=== PATIENT | female | born 1975 | race Hispanic/Latino ===

== ENCOUNTER 2019-09-26 09:29 | Emergency (ER) | payer SELFPAY ==
[2019-09-26] MEDS ORDERED: IPRATROPIUM/ALBUTEROL SULFATE 3 ML SOLUTION IH ONE (09:53)
[2019-09-26] MEDS ORDERED: METHYLPREDNISOLONE SOD SUCC 125MG/2ML VIAL ONE (09:59)
== END 2019-09-26 10:24 | disposition home or self-care (01) ==
LOC: EDH 09:29
DX: J45.21 Mild intermittent asthma with (acute) exacerbation (principal); Z87.891 Personal history of nicotine dependence
CPT/HCPCS: 94640; 96372; 99283; J2930

== ENCOUNTER 2020-12-09 20:03 | Inpatient (IN) | payer MEDICAID, OTHER ==
[~2020-12-09] VITALS: Ht 149.9 cm; Wt 100.2 kg
[2020-12-09 20:42] LABS: BASOPHILS % (AUTO) 0.4 % (0.0-5.0); EOSINOPHILS % (AUTO) 2.1 % (0.0-8.0); HEMATOCRIT 24.5 % (36-48); LYMPHOCYTES % (AUTO) 28.1 % (21.0-51.0); MEAN CORPUSCULAR HEMOGLOBIN 15.4 pg (27.0-33.0); MEAN CORPUSCULAR HGB CONC 24.9 g/dL (32.0-36.0); MEAN CORPUSCULAR VOLUME 61.7 fL (79-99); MONOCYTES % (AUTO) 7.8 % (3.0-13.0); NEUTROPHILS % (AUTO) 61.2 % (40.0-77.0); NUCLEATED RED BLOOD CELLS 0.2 % (0.0-0.19); PLATELET COUNT (AUTO) 355 K/uL (130-400); RED BLOOD CELL COUNT(AUTO) 3.97 MIL/uL (4.00-5.50); RED CELL DISTRIBUTION WIDTH 20.1 % (11.0-15.5); WHITE BLOOD COUNT (AUTO) 9.1 K/uL (4.8-10.8)
[2020-12-09 20:43] LABS: APPEARANCE,URINE CLOUDY (CLEAR); BILIRUBIN,URINE NEGATIVE (NEGATIVE); COLOR,URINE YELLOW (YELLOW); GLUCOSE, URINE (UA) NEGATIVE (NEGATIVE); KETONES,URINE NEGATIVE (NEGATIVE); LEUKOCYTE ESTERASE ,URINE NEGATIVE (NEGATIVE); NITRATE,URINE NEGATIVE (NEGATIVE); OCCULT BLOOD,URINE LARGE (NEGATIVE); PROTEIN,URINE TRACE mg/dL (NEGATIVE); UROBILINOGEN,URINE 0.2 mg/dL (0.2-1.0)
[2020-12-09 20:49] LABS: HCG,QUAL RESULT NEGATIVE (NEGATIVE)
[2020-12-09 20:53] LABS: CREATININE 0.9 mg/dL (0.5-1.5); POTASSIUM 3.5 mmol/L (3.5-5.1); RBC,URINE 51-100 /HPF (0-1)
[2020-12-09 20:54] LABS: BACTERIA,URINE Few /HPF (None Seen); WBC,URINE 0-1 /HPF (0-1)
[2020-12-09 20:55] LABS: INR 1.02 (0.85-1.15); MUCUS,URINE Few LPF (None Seen); PROTHROMBIN TIME 11.1 SEC (9.6-11.6); SQUAMOUS EPITHELIAL CELL,UR Few /HPF (0-2)
[2020-12-09 20:56] LABS: HYALINE CASTS, URINE 0-1 /LPF (0-1 /LPF); PARTIAL THROMBOPLASTIN TIME 23.6 SEC (26.3-35.5)
[2020-12-09 21:01] LABS: ALBUMIN 3.8 g/dL (3.5-5.0); BILIRUBIN,TOTAL 0.2 mg/dL (0.2-1.0); TOTAL PROTEIN, SERUM 7.9 g/dL (6.0-8.3)
[2020-12-09] MEDS: DEXTROSE 5 %-0.45 % NACL 1,000 ML IV SCH (22:00)
[2020-12-09] MEDS ORDERED: PHARMACY COMMUNICATION MISC SCH (22:00)
[2020-12-10 00:40] VITALS: BP 132/63
[2020-12-10 04:00] VITALS: BP 109/53
[2020-12-10] MEDS ORDERED: FERR240T6 PO (04:41)
[2020-12-10] MEDS: DEXTROSE 5 %-0.45 % NACL 1,000 ML IV SCH (06:04)
[2020-12-10 07:21] VITALS: BP 127/69
[2020-12-10 07:50] LABS: HEMATOCRIT 28.3 % (36-48); MEAN CORPUSCULAR HEMOGLOBIN 19.4 pg (27.0-33.0); MEAN CORPUSCULAR VOLUME 66.9 fL (79-99); RED BLOOD CELL COUNT(AUTO) 4.23 MIL/uL (4.00-5.50); RED CELL DISTRIBUTION WIDTH 25.3 % (11.0-15.5); WHITE BLOOD COUNT (AUTO) 8.2 K/uL (4.8-10.8)
[2020-12-10 11:17] VITALS: BP 123/71
== END 2020-12-10 11:35 | disposition home or self-care (01) | DRG 761 ==
LOC: EDH 20:03 → EDHIP 20:04 → WSH 12-10 00:40
PROVIDERS: ADMIT Obstetrics & Gynecology; ATTEND Obstetrics & Gynecology
PROC: 30233N1 Transfusion of Nonautologous Red Blood Cells into Peripheral Vein, Percutaneous Approach (ICD-10-PCS; principal; 2020-12-09)
DX: N93.9 Abnormal uterine and vaginal bleeding, unspecified (principal); D64.9 Anemia, unspecified; Z98.891 History of uterine scar from previous surgery
CPT/HCPCS: 36415; 36430; 80053; 81001; 81025; 82550; 85025; 85027; 85610; 85730; 86850; 86900; 86901; 86923; 87426; G0378; P9016; U0003

== ENCOUNTER 2021-03-20 00:15 | Emergency (ER) | payer SELFPAY ==
[~2021-03-20] VITALS: Ht 149.9 cm; Wt 98.9 kg
[~2021-03-20 00:15] MED LIST: FERR240T6 PO
[2021-03-20] MEDS ORDERED: AZIT250T9 PO (05:15)
[2021-03-20] MEDS ORDERED: BENZ-17 PO (05:15)
[2021-03-20] MEDS ORDERED: PRED20TA3 PO (05:15)
[2021-03-20] MEDS ORDERED: BENZONATATE 100 MG CAPSULE PO ONE ×2 (05:30→05:51)
[2021-03-20] MEDS ORDERED: AZITHROMYCIN 250 MG TABLET PO ONE ×2 (05:30→05:51)
[2021-03-20] MEDS ORDERED: PREDNISONE 20 MG TABLET PO ONE (05:30)
[2021-03-20] MEDS ORDERED: PREDNISONE 20 MG TABLET ONE (05:51)
[2021-03-20 05:58] VITALS: BP 146/62
== END 2021-03-20 06:13 | disposition home or self-care (01) ==
LOC: EDH 00:15
DX: J45.909 Unspecified asthma, uncomplicated (principal); Z79.52 Long term (current) use of systemic steroids

== ENCOUNTER 2022-09-02 10:24 | Emergency (ER) | payer BC, OTHER ==
[~2022-09-02] VITALS: Ht 149.9 cm; Wt 104.3 kg
[~2022-09-02 10:24] MED LIST changes: +AZIT250T9 PO; +BENZ-17 PO; +PRED20TA3 PO
[2022-09-02 11:01] LABS: BASOPHILS % (AUTO) 0.3 % (0.0-5.0); EOSINOPHILS % (AUTO) 2.4 % (0.0-8.0); HEMATOCRIT 40.9 % (36-48); LYMPHOCYTES % (AUTO) 23.3 % (21.0-51.0); MEAN CORPUSCULAR HEMOGLOBIN 30.3 pg (27.0-33.0); MEAN CORPUSCULAR VOLUME 91.9 fL (79-99); MONOCYTES % (AUTO) 7.2 % (3.0-13.0); NEUTROPHILS % (AUTO) 66.5 % (40.0-77.0); PLATELET COUNT (AUTO) 160 K/uL (130-400); RED BLOOD CELL COUNT(AUTO) 4.45 MIL/uL (4.00-5.50); RED CELL DISTRIBUTION WIDTH 12.1 % (11.0-15.5); WHITE BLOOD COUNT (AUTO) 3.4 K/uL (4.8-10.8)
[2022-09-02 11:03] VITALS: BP 137/77
[2022-09-02 11:15] LABS: CREATININE 0.7 mg/dL (0.5-1.5); POTASSIUM 3.8 mmol/L (3.5-5.1)
[2022-09-02 11:17] LABS: APPEARANCE,URINE CLEAR (CLEAR); BILIRUBIN,URINE NEGATIVE (NEGATIVE); COLOR,URINE YELLOW (YELLOW); GLUCOSE, URINE (UA) NEGATIVE (NEGATIVE); KETONES,URINE NEGATIVE (NEGATIVE); LEUKOCYTE ESTERASE ,URINE 75 Leu/uL (NEGATIVE); NITRATE,URINE NEGATIVE (NEGATIVE); OCCULT BLOOD,URINE NEGATIVE (NEGATIVE); PROTEIN,URINE 10 mg/dL (NEGATIVE)
[2022-09-02 11:19] LABS: ALBUMIN 3.4 g/dL (3.5-5.0); TOTAL PROTEIN, SERUM 7.2 g/dL (6.0-8.3)
[2022-09-02 11:31] LABS: BACTERIA,URINE FEW /HPF (None Seen); MUCUS,URINE RARE LPF (None Seen); SQUAMOUS EPITHELIAL CELL,UR MOD /HPF (0-2)
[2022-09-02] MEDS ORDERED: CEPH500B PO (12:45)
== END 2022-09-02 13:32 | disposition home or self-care (01) ==
LOC: EDH 10:24
DX: N39.0 Urinary tract infection, site not specified (principal); J45.909 Unspecified asthma, uncomplicated; Z79.52 Long term (current) use of systemic steroids; Z79.899 Other long term (current) drug therapy; Z90.49 Acquired absence of other specified parts of digestive tract
CPT/HCPCS: 36415; 80053; 81001; 83690; 85025; 87077; 87088; 87186